=== PATIENT | male | born 1960 | race Caucasian/White ===

== ENCOUNTER 2019-05-21 10:08 | Emergency (ER) | payer BC, OTHER ==
[2019-05-21 11:00] VITALS: BP 143/86
--- NOTE | 2019-05-21 11:32 | UC ---
Throat Pain/Nasal Chano HPI - HPI Summary HPI Summary: 58-year-old male comes in with a chief complaint of 2-3 weeks of upper respiratory tract infection symptoms. Been having some cough and rhinorrhea for several weeks and the last 1 week the cough has become productive any feels like it's deeper into his chest. No wheezing no history of asthma. He is a smoker. No recent fevers. Patient's also noted in the last 3-4 weeks his vision in his right eye appears dark. The amount darkness does very during the course of the day. He has had Lasix surgery in the past. No eye pain no headache no focal neurologic deficit. Does not wear contacts. - History of Current Complaint Chief Complaint: UCGeneralIllness Stated Complaint: ST,RT EYE COMPLAINT Time Seen by Provider: 05/21/19 11:01 Pain Intensity: 2 - Allergies/Home Medications Allergies/Adverse Reactions: Allergies Allergy/AdvReac Type Severity Reaction Status Date / Time iodine Allergy Rash And Verified 05/21/19 10:56 Itching Penicillins Allergy Hives Verified 05/21/19 10:56 PMH/Surg Hx/FS Hx/Imm Hx Previously Healthy: Yes - Surgical History Surgical History: Yes Surgery Procedure, Year, and Place: ORAL ONLY - Family History Known Family History: Positive: Non-Contributory - Social History Alcohol Use: Daily Alcohol Amount: 2-4 Substance Use Type: None Smoking Status (MU): Heavy Every Day Tobacco Smoker Type: Cigarettes Amount Used/How Often: 1 ppd Length of Time of Smoking/Using Tobacco: 36 yrs Have You Smoked in the Last Year: Yes - Immunization History Most Recent Tetanus Shot: UNKNOWN Review of Systems All Other Systems Reviewed And Are Negative: Yes Constitutional: Positive: Negative Skin: Positive: Negative Eyes: Positive: Blurred Vision ENT: Positive: Nasal Discharge, Sinus Congestion Respiratory: Positive: Other - SEE HPI Cardiovascular: Positive: Negative Gastrointestinal: Positive: Negative Motor: Positive: Negative Neurovascular: Positive: Negative Musculoskeletal: Positive: Negative Neurological: Positive: Negative Psychological: Positive: Negative Is Patient Immunocompromised?: No Physical Exam Triage Information Reviewed: Yes Appearance: Well-Appearing, No Pain Distress, Well-Nourished Vital Signs: Initial Vital Signs Temp 98.9 F 05/21/19 10:57 Pulse 95 05/21/19 10:57 Resp 14 05/21/19 10:57 BP 143/86 05/21/19 10:57 Pulse Ox 98 05/21/19 10:57 Vital Signs Reviewed: Yes Eyes: Positive: Other: - PERRLA EOMI. No photophobia. No injection. No focal visual field deficit. ENT: Positive: Nasal congestion, TMs normal Neck: Positive: Supple Respiratory: Positive: No respiratory distress, Rhonchi Cardiovascular: Positive: RRR Musculoskeletal: Positive: Strength Intact, ROM Intact Neurological: Positive: Alert, Muscle Tone Normal Psychological: Positive: Age Appropriate Behavior Skin Exam: Normal Throat Pain/Nasal Course/Dx - Course Course Of Treatment: Patient has no visual field deficits on examination he has no eye pain. I did not appreciate any abnormalities on my examination. I recommended the patient that he call is legal nurse consultant today. He has seen ophthalmology here in [place] any plans to do that. We'll treat bronchitis with azithromycin. Symptoms have been going on for more than 10 days. - Differential Dx/Diagnosis Provider Diagnosis: Bronchitis, Blurred vision, right eye Discharge ED - Sign-Out/Discharge Documenting (check all that apply): Patient Departure All imaging exams completed and their final reports reviewed: No Studies - Discharge Plan Condition: Stable Disposition: HOME Prescriptions: Azithromyxin SHARLENE (NF) [Z-Sharlene (Zithromax) 250 mg tabs #6] 2 tab PO .TODAY, THEN 1 DAILY #6 tab Patient Education Materials: Acute Bronchitis (ED), Blurred Vision (ED) Referrals: [facility] [Outside] Additional Instructions: FOLLOW UP WITH YOUR EYE DOCTOR FOR YOUR RIGHT EYE VISION CHANGE. CALL TODAY TO ARRANGE AN EXAM. FOLLOW UP WITH YOUR PRIMARY CARE DOCTOR IF YOUR BRONCHITIS IS NOT COMPLETELY IMPROVED. GET REEVALUATED SOONER IF NOT IMPROVING OR YOUR CONDITION WORSENS OR ANY QUESTIONS OR CONCERNS. - Billing Disposition and Condition Condition: STABLE Disposition: Home
== END 2019-05-21 11:38 | disposition home or self-care (01) ==
LOC: UCCORT 10:08
DX: J40 Bronchitis, not specified as acute or chronic (principal); H53.8 Other visual disturbances; R09.89 Other specified symptoms and signs involving the circulatory and respiratory systems; R09.81 Nasal congestion; F17.210 Nicotine dependence, cigarettes, uncomplicated; Z88.8 Allergy status to other drugs, medicaments and biological substances; Z88.0 Allergy status to penicillin
CPT/HCPCS: 99202; G0463